=== PATIENT | female | born 1995 | race Caucasian/White ===

== ENCOUNTER 2020-05-07 15:12 | Emergency (ER) | payer BC, OTHER ==
[2020-05-07 17:28] LABS: HEMOGLOBIN 13.1 gm/dl (12.3-15.3); RED BLOOD COUNT 4.4 M/UL (4.00-5.10); WHITE BLOOD COUNT 11.9 K/UL (4.5-11.0)
[2020-05-07 17:57] LABS: BUN/CREATININE RATIO 8 (0-10)
[2020-05-07] MEDS ORDERED: CEPHALEXIN500 MG PO (19:56)
[2020-05-07] MEDS ORDERED: REGLAN10 MG PO (19:56)
== END 2020-05-07 20:23 | disposition home or self-care (01) ==
LOC: ER1 15:12
PROVIDERS: Physician Assistant
DX: O21.0 Mild hyperemesis gravidarum (principal); O23.41 Unspecified infection of urinary tract in pregnancy, first trimester; Z90.89 Acquired absence of other organs; Z79.84 Long term (current) use of oral hypoglycemic drugs; Z3A.09 9 weeks gestation of pregnancy
CPT/HCPCS: 80053; 81001; 85025; 96365; 96375; 99284; J0696; J2550; J7030

== ENCOUNTER 2020-11-26 16:45 | Inpatient (IN) | payer OTHER ==
[~2020-11-26] VITALS: Ht 149.9 cm; Wt 98.4 kg
[~2020-11-26 16:45] MED LIST: CEPHALEXIN500 MG PO; REGLAN10 MG PO
[2020-11-26 18:01] LABS: HEMOGLOBIN 10.5 gm/dl (12.3-15.3); RED BLOOD COUNT 4.07 M/UL (4.00-5.10); WHITE BLOOD COUNT 9.7 K/UL (4.5-11.0)
[2020-11-27] MEDS ORDERED: COLACE 100MG C100 MG PO (20:43)
[2020-11-27] MEDS ORDERED: HYDROCODON-ACE1 EAC6 PO (20:43)
[2020-11-27] MEDS ORDERED: IBUPROFEN600 MG PO (20:43)
[2020-11-28 07:19] LABS: HEMOGLOBIN 10.4 gm/dl (12.3-15.3)
== END 2020-11-29 16:36 | disposition home or self-care (01) | DRG 786 ==
LOC: GENOP 16:45 → OB 17:14
PROVIDERS: Obstetrics & Gynecology; ADMIT Obstetrics & Gynecology
PROC: 10907ZC Drainage of Amniotic Fluid, Therapeutic from Products of Conception, Via Natural or Artificial Opening (ICD-10-PCS; 2020-11-26)
PROC: 4A1HXCZ Monitoring of Products of Conception, Cardiac Rate, External Approach (ICD-10-PCS; 2020-11-26)
PROC: 0U7C7ZZ Dilation of Cervix, Via Natural or Artificial Opening (ICD-10-PCS; 2020-11-26)
PROC: 3E033VJ Introduction of Other Hormone into Peripheral Vein, Percutaneous Approach (ICD-10-PCS; 2020-11-26)
PROC: 10D00Z1 Extraction of Products of Conception, Low, Open Approach (ICD-10-PCS; principal; 2020-11-27 21:10)
DX: O36.63X0 Maternal care for excessive fetal growth, third trimester, not applicable or unspecified (principal); O41.1230 Chorioamnionitis, third trimester, not applicable or unspecified; O66.40 Failed trial of labor, unspecified; O99.214 Obesity complicating childbirth; Z37.0 Single live birth; Z3A.38 38 weeks gestation of pregnancy
CPT/HCPCS: 36415; 81001; 82800; 85014; 85018; 85025; 90471; 90707; 90715; C9113; J0290; J1580; J1650; J1885; J2274; J2370; J2405; J2590; J7120; U0002

== ENCOUNTER 2021-07-21 21:27 | Emergency (ER) | payer BC ==
[~2021-07-21 21:27] MED LIST changes: +COLACE 100MG C100 MG PO; +HYDROCODON-ACE1 EAC6 PO; +IBUPROFEN600 MG PO
[2021-07-21 21:59] LABS: HEMOGLOBIN 13.9 gm/dl (12.3-15.3); RED BLOOD COUNT 4.75 M/UL (4.00-5.10); WHITE BLOOD COUNT 10.2 K/UL (4.5-11.0)
[2021-07-21 22:25] LABS: BUN/CREATININE RATIO 17 (0-10)
[2021-07-22] MEDS ORDERED: BENTYL 20MG TAB20 MG PO (01:43)
[2021-07-22] MEDS ORDERED: ZOFRAN ODT 4 MG4 MG PO (01:43)
== END 2021-07-22 01:55 | disposition home or self-care (01) ==
LOC: ER1 21:27
PROVIDERS: Physician Assistant
DX: N83.201 Unspecified ovarian cyst, right side (principal); R00.0 Tachycardia, unspecified; Z90.89 Acquired absence of other organs
CPT/HCPCS: 80053; 81001; 82150; 83690; 85025; 87086; 99284; Q9967